=== PATIENT | male | born 1970 | race Asian ===

== ENCOUNTER 2018-05-25 11:33 | Emergency (ER) | payer BC | END 2018-05-25 12:49 | disposition home or self-care (01) | LOC: FTE 11:33 | DX: S29.9XXA Unspecified injury of thorax, initial encounter (principal); X58.XXXA Exposure to other specified factors, initial encounter; Y92.9 Unspecified place or not applicable | CPT/HCPCS: 71045; 71100; 71101-LT; 99283-25 ==